=== PATIENT | female | born 1965 | race African-American/Black ===

== ENCOUNTER 2023-10-19 12:14 | Emergency (ER) | payer MEDICAID ==
[~2023-10-19] VITALS: Ht 165.1 cm; Wt 84.8 kg
[2023-10-19 12:48] VITALS: BP 131/59; PULSE 88; RESP 18; TEMP 98.4; O2SAT 98
[2023-10-19] MEDS ORDERED: KETOROLAC 30 MG/ML VIAL IM ONE (13:40)
[2023-10-19] MEDS ORDERED: DICL20GE TP (14:34)
[2023-10-19] MEDS ORDERED: IBUP-2213 PO (14:34)
== END 2023-10-19 14:43 | disposition home or self-care (01) ==
LOC: MED 12:14
DX: M75.32 Calcific tendinitis of left shoulder (principal); J45.909 Unspecified asthma, uncomplicated; E11.9 Type 2 diabetes mellitus without complications; I10 Essential (primary) hypertension; E03.9 Hypothyroidism, unspecified; Z79.899 Other long term (current) drug therapy; Z79.1 Long term (current) use of non-steroidal anti-inflammatories (NSAID)
CPT/HCPCS: 73030; 96372; 99283; J1885